=== PATIENT | female | born 1965 | race American Indian/Alaskan Native ===

== ENCOUNTER 2018-08-27 18:46 | Emergency (ER) | payer OTHER ==
--- NOTE | 2018-08-27 18:59 | Emergency Department Report ---
Blank Doc - Documentation Documentation: This is a 53 y.o. female that presents to ED with sore throat since this mauroni ng. Hx HTN. Patient reports sick daughter visited last week. cc: sore throat Fast track for further evaluation.
--- NOTE | 2018-08-27 21:26 | Emergency Department Report ---
ED ENT HPI - General Chief complaint: Sore Throat Stated complaint: SORE THROAT/HEADACHE Time Seen by Provider: 08/27/18 18:56 Source: patient Mode of arrival: Ambulatory Limitations: No Limitations - History of Present Illness Initial comments: Pt is a 53 yo female who presents to the ED with c/o a sore throat that began this morning. She states it feels "scratchy." She denies any fever, cough, rhinorrhea, or congestion. She states her daughter just visited, and she had a URI. The patient has not tried any treatment. The patient has a hx of HTN and states she did take her lisinopril/hctz this morning. MD complaint: sore throat -: This morning Severity: mild ("scratchy") Consistency: constant Associated Symptoms: denies: fever, cough, pain with swallowing, discharge from ear, rhinorrhea - Related Data Allergies Allergy/AdvReac Type Severity Reaction Status Date / Time No Known Allergies Allergy Unverified 08/27/18 18:49 ED Dental HPI - General Chief complaint: Sore Throat Stated complaint: SORE THROAT/HEADACHE Time Seen by Provider: 08/27/18 18:56 Source: patient Mode of arrival: Ambulatory Limitations: No Limitations - Related Data Allergies Allergy/AdvReac Type Severity Reaction Status Date / Time No Known Allergies Allergy Unverified 08/27/18 18:49 ED Review of Systems ROS: Stated complaint: SORE THROAT/HEADACHE Other details as noted in HPI Comment: All other systems reviewed and negative ENT: as per HPI ED Past Medical Hx - Past Medical History Previous Medical History?: Yes Hx Hypertension: Yes - Surgical History Past Surgical History?: No - Social History Smoking Status: Never Smoker Substance Use Type: None ED Physical Exam - General Limitations: No Limitations General appearance: alert, in no apparent distress - Head Head exam: Present: atraumatic, normocephalic - Eye Eye exam: Present: normal appearance. Absent: scleral icterus, conjunctival injection, periorbital swelling, periorbital tenderness - ENT ENT exam: Present: normal exam, normal orophraynx, mucous membranes moist, normal external ear exam - Neck Neck exam: Present: normal inspection. Absent: tenderness, meningismus, lymphadenopathy - Respiratory Respiratory exam: Present: normal lung sounds bilaterally. Absent: respiratory distress, wheezes, rales, rhonchi, stridor, chest wall tenderness, accessory muscle use, decreased breath sounds, prolonged expiratory - Cardiovascular Cardiovascular Exam: Present: regular rate, normal heart sounds. Absent: systolic murmur, rubs, gallop - Neurological Exam Neurological exam: Present: alert, oriented X3 - Psychiatric Psychiatric exam: Present: normal affect, normal mood - Skin Skin exam: Present: warm, dry, intact ED Course Vital Signs 08/27/18 08/27/18 18:56 21:27 Temperature 98.7 F Pulse Rate 88 77 Respiratory 16 17 Rate Blood Pressure 183/98 Blood Pressure 151/99 [Left] O2 Sat by Pulse 99 99 Oximetry ED Medical Decision Making - Medical Decision Making Pt is a 53 yo female presents with sore throat, denies any other sx. Pt with + sick contact with URI. Oropharynx is normal. Advised pt to follow up with pcp in the next couple of days. Discussed with patient about her BP in length and told her she needs to follow up with her PCP for further management and adjustment of medications. Initial BP upon arrival 183/98, repeat in the ED is 151/99. Advised pt if new or worsening sx or if sx do not resolve then to return to ED. May use OTC cepacol and ibuprofen as needed for throat discomfort. - Differential Diagnosis URI, Viral Syndrome, Viral pharyngitis Critical care attestation.: If time is entered above; I have spent that time in minutes in the direct care of this critically ill patient, excluding procedure time. ED Disposition Clinical Impression: Sore throat Disposition: DC-01 TO HOME OR SELFCARE Is pt being admited?: No Does the pt Need Aspirin: No Condition: Stable Instructions: Pharyngitis (ED) Additional Instructions: Follow up with PCP as soon as possible for evaluation after ED visit and for BP management. Return to ED if new/worsening symptoms or if symptoms do not resolve. May get cepachol OTC and use ibuprofen for sore throat. Referrals: [facility] SHIRLEY RASCON MD [Primary Care Provider] - 3-5 Days Time of Disposition: 21:32 Print Language: ICELANDIC
== END 2018-08-27 21:35 | disposition home or self-care (01) ==
LOC: ED 18:46
CPT/HCPCS: 99282